=== PATIENT | male | born 1975 | race Two or more races ===

== ENCOUNTER → 2024-10-03 | Emergency (ER) | payer OTHER ==
[~2024-10-03] VITALS: Ht 172.7 cm; Wt 104.3 kg
[~2024-10-03] MED LIST: DEXAMETHASONE SODIUM PHOSPHATE 4 MG/ML VIAL IM STA; KETOROLAC TROMETHAMINE 60 MG VIAL IM ONE; KETOROLAC TROMETHAMINE 60 MG VIAL IM STA; ORPHENADRINE CITRATE 30 MG/ML AMPUL IM STA; ORPHENADRINE CITRATE 30 MG/ML AMPUL ONE
[2024-10-03 21:09] VITALS: BP 137/78; O2SAT 97
== END | disposition home or self-care (01) ==
LOC: ER 20:48
DX: S73.102A Unspecified sprain of left hip, initial encounter (principal); X58.XXXA Exposure to other specified factors, initial encounter; Y93.89 Activity, other specified; Y92.89 Other specified places as the place of occurrence of the external cause; Y99.9 Unspecified external cause status